=== PATIENT | female | born 1975 | race Caucasian/White ===

== ENCOUNTER 2017-01-16 11:12 | Emergency (ER) | payer OTHER ==
[~2017-01-16] VITALS: Ht 165.1 cm; Wt 88.9 kg
[2017-01-16 14:00] VITALS: BP 127/71
== END 2017-01-16 14:00 | disposition home or self-care (01) ==
LOC: ED 11:12
DX: G89.29 Other chronic pain (principal); M54.5 Low back pain
CPT/HCPCS: J1885

== ENCOUNTER 2018-08-23 12:26 | Emergency (ER) | payer OTHER ==
[~2018-08-23] VITALS: Ht 167.6 cm; Wt 83.9 kg
[2018-08-23 13:12] VITALS: BP 141/84
== END 2018-08-23 15:45 | disposition left against medical advice (07) ==
LOC: ED 12:26
DX: Z53.21 Procedure and treatment not carried out due to patient leaving prior to being seen by health care provider (principal)

== ENCOUNTER 2019-04-17 23:05 | Emergency (ER) | payer MEDICAID ==
[~2019-04-17] VITALS: Ht 165.1 cm; Wt 80.3 kg
[2019-04-17 23:10] VITALS: Ht 165.1 cm; Wt 80.3 kg
[2019-04-18 00:35] LABS: AMPHETAMINE QUAL UR POSITIVE (See below)
[2019-04-18 00:45] VITALS: BP 123/63
== END 2019-04-18 00:45 | disposition home or self-care (01) ==
LOC: ED 23:05
PROVIDERS: Emergency Medicine
DX: S39.012A Strain of muscle, fascia and tendon of lower back, initial encounter (principal); F15.10 Other stimulant abuse, uncomplicated; Z98.890 Other specified postprocedural states; X58.XXXA Exposure to other specified factors, initial encounter; Y93.69 Activity, other involving other sports and athletics played as a team or group; Y92.89 Other specified places as the place of occurrence of the external cause; Y99.8 Other external cause status
CPT/HCPCS: J1885